=== PATIENT | male | born 2000 | race Caucasian/White ===

== ENCOUNTER 2020-05-02 02:34 | Emergency (ER) | payer SELFPAY ==
[2020-05-02] MEDS ORDERED: Sodium Chloride 0.9% 10 ML Syringe FLUSH PRN (02:59)
[2020-05-02] MEDS ORDERED: Lactated Ringers 1,000 ML IV ONE (02:59)
[2020-05-02] MEDS ORDERED: LORazepam 2 MG/ML SDV IVPUSH ONE (02:59)
--- NOTE | 2020-05-02 03:01 | EDM.PDOCBH ---
ED HPI GENERAL MEDICAL PROBLEM - General Chief Complaint: Abdominal Pain Stated Complaint: ALCOHOL POISONING Time Seen by Provider: 05/02/20 02:55 Source of Information: Reports: Patient, RN Notes Reviewed History Limitations: Reports: No Limitations - History of Present Illness INITIAL COMMENTS - FREE TEXT/NARRATIVE: 20-year-old gentleman presents emergency department the complaining of having too much to drink he had 3 or 4 drinks of whiskey tonight and now he feels upset he is nauseated he is breathing heavy he is quite anxious he admits that he does not hold his alcohol well - Related Data Allergies Allergy/AdvReac Type Severity Reaction Status Date / Time No Known Allergies Allergy Verified 05/02/20 02:45 Home Meds: Home Meds NK [No Known Home Meds] 05/02/20 [History] Past Medical History HEENT History: Reports: Impaired Vision Respiratory History: Reports: Asthma Other Respiratory History: exercise induced asthma Dermatologic History: Reports: Eczema - Infectious Disease History Infectious Disease History: Reports: Chicken Pox Social & Family History - Tobacco Use Smoking Status *Q: Never Smoker - Recreational Drug Use Recreational Drug Use: No ED ROS GENERAL - Review of Systems Review Of Systems: See Below Constitutional: Reports: No Symptoms HEENT: Reports: No Symptoms Respiratory: Reports: Shortness of Breath Cardiovascular: Reports: Chest Pain GI/Abdominal: Reports: Abdominal Pain, Nausea Psychiatric: Reports: Anxiety ED EXAM, BEHAVIORAL HEALTH - Physical Exam Exam: See Below Exam Limited By: Intoxication General Appearance: Alert, Mild Distress Respiratory/Chest: No Respiratory Distress, Lungs Clear, Normal Breath Sounds, No Accessory Muscle Use, Chest Non-Tender Cardiovascular: Regular Rate, Rhythm, No Murmur GI/Abdominal: Soft, Non-Tender COURSE, BEHAVIORAL HEALTH COMP - Course Vital Signs: Last Vital Signs Temp 97.1 F 05/02/20 02:50 Pulse 84 05/02/20 02:50 Resp 22 H 05/02/20 02:50 BP 143/75 H 05/02/20 02:50 Pulse Ox 99 05/02/20 02:50 Orders, Labs, Meds: Active Orders 24 hr Category Date Time Status Peripheral IV Care [RC] . DIRECTED Care 05/02/20 03:00 Active DRUG SCREEN, URINE [URCHEM] Stat Lab 05/02/20 05:15 Received Lactated Ringers [Ringers, Lactated] 1,000 ml Med 05/02/20 04:00 Active IV BOLUS Sodium Chloride 0.9% [Saline Flush] Med 05/02/20 02:59 Active 10 ml FLUSH ASDIRECTED PRN Peripheral IV Insertion Adult [OM.PC] Urgent Oth 05/02/20 02:59 Ordered Medication Orders Lactated Ringer's (Ringers, Lactated) 1,000 mls @ 1,000 mls/hr IV BOLUS ADELINA Last Admin: 05/02/20 04:18 Dose: 1,000 mls/hr Documented by: ANA Sodium Chloride (Saline Flush) 10 ml FLUSH ASDIRECTED PRN PRN Reason: Keep Vein Open Last Admin: 05/02/20 03:16 Dose: 10 ml Documented by: ANA Laboratory Tests 05/02/20 05/02/20 05/02/20 Range/Units 03:16 03:16 03:16 WBC 15.2 H (4.5-11.0) K/uL RBC 5.41 (4.30-5.90) M/uL Hgb 16.6 H (12.0-15.0) g/dL Hct 46.2 (40.0-54.0) % MCV 85 (80-98) fL MCH 31 (27-31) pg MCHC 36 (32-36) % Plt Count 239 (150-400) K/uL Neut % (Auto) 77 H (36-66) % Lymph % (Auto) 14 L (24-44) % [place] % (Auto) 7 H (2-6) % Eos % (Auto) 1 L (2-4) % Baso % (Auto) 1 (0-1) % Sodium 141 (140-148) mmol/L Potassium 4.0 (3.6-5.2) mmol/L Chloride 102 (100-108) mmol/L Carbon Dioxide 23 (21-32) mmol/L Anion Gap 15.7 H (5.0-14.0) mmol/L BUN 9 (7-18) mg/dL Creatinine 0.9 (0.8-1.3) mg/dL Est Cr Clr Drug Dosing 116.62 mL/min Estimated GFR (MDRD) > 60 (>60) Glucose 116 H (74-106) mg/dL Calcium 9.7 (8.5-10.1) mg/dL Total Bilirubin 0.4 (0.2-1.0) mg/dL AST 23 (15-37) U/L ALT 21 (12-78) U/L Alkaline Phosphatase 68 (46-116) U/L Total Protein 8.0 (6.4-8.2) g/dL Albumin 4.9 (3.4-5.0) g/dL Globulin 3.1 (2.3-3.5) g/dL Albumin/Globulin Ratio 1.6 (1.2-2.2) Ethyl Alcohol 96 mg/dL Medications Generic Name Dose Route Start Last Admin Trade Name Freq PRN Reason Stop Dose Admin Lactated Ringer's 1,000 mls @ 1,000 mls/hr 05/02/20 04:00 05/02/20 04:18 Ringers, Lactated IV 1,000 mls/hr BOLUS ADELINA Administration Sodium Chloride 10 ml 05/02/20 02:59 05/02/20 03:16 Saline Flush FLUSH 10 ml ASDIRECTED PRN Administration Keep Vein Open Discontinued Medications Generic Name Dose Route Start Last Admin Trade Name Freq PRN Reason Stop Dose Admin Lactated Ringer's 1,000 mls @ 999 mls/hr 05/02/20 02:59 05/02/20 03:16 Ringers, Lactated IV 05/02/20 03:59 999 mls/hr BOLUS ONE Administration Lorazepam 1 mg 05/02/20 02:59 05/02/20 03:16 Ativan IVPUSH 05/02/20 03:00 1 mg ONETIME ONE Administration Departure - Departure Time of Disposition: 05:46 Disposition: Home, Self-Care 01 Condition: Poor Clinical Impression: Intoxication - Discharge Information Instructions: Alcohol Intoxication, [id number] Referrals: PCP,None [Primary Care Provider] - Forms: ED Department Discharge Additional Instructions: Recommend refrain from alcohol please follow-up with your primary care as needed Sepsis Event Note (ED) - Evaluation Sepsis Screening Result: No Definite Risk - Focused Exam Vital Signs: Vital Signs Temp Pulse Resp BP Pulse Ox 05/02/20 02:50 97.1 F 84 22 H 143/75 H 99 - My Orders Last 24 Hours: My Active Orders 05/02/20 02:59 Sodium Chloride 0.9% [Saline Flush] 10 ml FLUSH ASDIRECTED PRN Peripheral IV Insertion Adult [OM.PC] Urgent 05/02/20 03:00 Peripheral IV Care [RC] . DIRECTED 05/02/20 04:00 Lactated Ringers [Ringers, Lactated] 1,000 ml IV BOLUS 05/02/20 05:15 DRUG SCREEN, URINE [URCHEM] Stat - Assessment/Plan Last 24 Hours: My Active Orders 05/02/20 02:59 Sodium Chloride 0.9% [Saline Flush] 10 ml FLUSH ASDIRECTED PRN Peripheral IV Insertion Adult [OM.PC] Urgent 05/02/20 03:00 Peripheral IV Care [RC] . DIRECTED 05/02/20 04:00 Lactated Ringers [Ringers, Lactated] 1,000 ml IV BOLUS 05/02/20 05:15 DRUG SCREEN, URINE [URCHEM] Stat Plan: Assessment Alcohol intoxication alcohol is 0.09 Plan Refrain from alcohol follow-up primary care as needed
[2020-05-02] MEDS ORDERED: Lactated Ringers 1,000 ML IV SCH (04:00)
== END 2020-05-02 05:56 | disposition home or self-care (01) ==
LOC: JP.ED 02:34
DX: F10.129 Alcohol abuse with intoxication, unspecified (principal); Y90.4 Blood alcohol level of 80-99 mg/100 ml
CPT/HCPCS: 36415; 80053; 80305; 80307; 85025; 96374; 99284; J2060; J7120